=== PATIENT | male | born 1985 | race Caucasian/White ===

== ENCOUNTER 2021-03-01 23:48 | Emergency (ER) | payer SELFPAY ==
[~2021-03-01] VITALS: Ht 175.3 cm; Wt 86.2 kg
[2021-03-02 00:20] VITALS: BP_SYST 127
--- NOTE | 2021-03-02 00:23 | NUR ---
Patient triaged and placed in waiting room. VSS and patient appears in no acute distress at this time. Accompanied by family, awaiting available bed, and MD notified of need for MSE.
[2021-03-02 01:24] LABS: BILIRUBIN,URINE NEGATIVE (NEGATIVE); BLOOD, URINE 3+ (NEGATIVE); CLARITY/URINE SL CLOUDY (CLEAR); COLOR,URINE YELLOW (YELLOW); GLUCOSE,URINE NEGATIVE (NEGATIVE); KETONES,URINE 1+ (NEGATIVE); LEUKOCYTE ESTERASE ,URINE NEGATIVE (NEGATIVE); NITRITE, URINE NEGATIVE (NEGATIVE); PROTEIN URINE NEGATIVE (NEGATIVE); UROBILINOGEN,URINE 0.2 (0.2-1.0)
[2021-03-02 01:53] LABS: BACTERIA,URINE FEW /HPF (None Seen); RBC,URINE 80-100 /HPF (0-3)
--- NOTE | 2021-03-02 02:19 | NUR ---
PT ARRIVED TO ER FOR RIGHT FLANK PAIN, RIGHT SIDED ABDOMINAL PAIN AND BLADDER PAIN. PT STATES 8/10 THAT STARTED AT 2200 WHEN HE WENT TO USE THE RESTROOM. PT IS ABLE TO URINATE. PT TOOK 2 TYLENOL 500s AT AROUND 2300 BEFORE COMING TO ER. A&OX4
[2021-03-02] MEDS ORDERED: ONDANSETRON HCL 4 MG/2 ML VIAL IVP ONE (02:30)
[2021-03-02] MEDS ORDERED: NACL 0.9% 1,000 ML IV ONE (02:30)
[2021-03-02] MEDS ORDERED: MORPHINE 4 MG INJ. 4 MG/ML VIAL IVP ONE (02:30)
--- NOTE | 2021-03-02 02:30 | NUR ---
ER at bedside examining patient.
--- NOTE | 2021-03-02 02:39 | NUR ---
Patient transported to radiology via GURNEY, accompanied by BALWINDER.
--- NOTE | 2021-03-02 02:39 | NUR ---
# 20 gauge angiocath placed to RAC. Use of asceptic technique. Opsite placed over site. Blood return noted. Blood for lab drawn from site. Flushed with 10 cc of normal saline. No evidence of infiltration noted. Patient tolerated well.
[2021-03-02] MEDS ORDERED: MORPHINE 4 MG INJ. 4 MG/ML VIAL ONE (02:55)
[2021-03-02 03:07] LABS: BASOPHILS % (AUTO) 0.3 % (0.0-2.0); HEMATOCRIT 47.4 % (36-54); LYMPHOCYTES # (AUTO) 0.6 K/uL (1.0-5.5); LYMPHOCYTES % (AUTO) 3.7 % (20.5-51.5); MEAN CORPUSCULAR HEMOGLOBIN 30 pg (27-31); MEAN CORPUSCULAR HGB CONC 34 % (32-36); MEAN CORPUSCULAR VOLUME 88 fL (79.0-98.0); MONOCYTES # (AUTO) 0.6 K/uL (0.0-1.0); MONOCYTES % (AUTO) 3.8 % (1.7-9.3); NEUTROPHILS # (AUTO) 15.5 K/uL (1.8-7.7); NEUTROPHILS % (AUTO) 92.2 % (40.0-70.0); PLATELET COUNT (AUTO) 184 K/uL (130-430); RED BLOOD CELL COUNT(AUTO) 5.37 MIL/uL (4.2-6.2); RED CELL DISTRIBUTION WIDTH 13.5 % (9.0-15.0); WHITE BLOOD COUNT (AUTO) 16.8 K/uL (4.8-10.8)
--- NOTE | 2021-03-02 04:30 | NUR ---
PT RESTING IN BED COMFORTBALY, NO COMPLAINTS AT THIS TIME
[2021-03-02 06:27] LABS: CALCIUM 9.1 mg/dL (8.4-11.0); CREATININE 0.95 mg/dL (0.55-1.30); POTASSIUM 4.1 mmol/L (3.5-5.1)
[2021-03-02 06:34] LABS: ALBUMIN 4.3 g/dL (3.4-4.8); TOTAL BILIRUBIN 0.4 mg/dL (0.0-1.0)
--- NOTE | 2021-03-02 07:10 | NUR ---
Assumed care of pt. Pt resting quietly in no distress awaiting disposition.
[2021-03-02] MEDS ORDERED: IBUP-1969 PO (07:21)
[2021-03-02] MEDS ORDERED: ONDA-8 TL (07:21)
[2021-03-02] MEDS ORDERED: HYDR-3917 PO (07:21)
[2021-03-02 07:25] VITALS: BP_SYST 122
--- NOTE | 2021-03-02 07:25 | NUR ---
Patient given written and verbal discharge instructions and verbalizes understanding. Dr. Nayeli ALVARADO MD discussed with patient the results and treatment provided. Patient in stable condition. ID arm band removed. IV catheter removed intact and dressing applied, no active bleeding. Rx per MD. Patient educated on pain management and to follow up with PMD. Pain Scale 0/10.Opportunity for questions provided and answered. Medication side effect fact sheet provided.
== END 2021-03-02 07:25 | disposition home or self-care (01) ==
LOC: SED 23:48
DX: N13.2 Hydronephrosis with renal and ureteral calculous obstruction (principal)
CPT/HCPCS: 36415; 74176; 76376; 80053; 81000; 83690; 85025; 96361; 96374; 96375; 99285; J2270; J2405; J7030